=== PATIENT | female | born 1960 | race Caucasian/White ===

== ENCOUNTER 2025-03-16 15:25 | Inpatient (IN) | payer BC ==
[~2025-03-16] VITALS: Ht 165.1 cm; Wt 69.4 kg
[2025-03-16 15:27] VITALS: O2SAT 97
[2025-03-16] MEDS: MORPHINE SULFATE 4 MG/ML INJ (FOR IV/IM USE) IV STA (16:10)
[2025-03-16 17:05] LABS: BASOPHILS % 0.6 % (0.0-2.0); EOSINOPHILS % 8.3 % (0.0-5.0); HEMATOCRIT. 27.6 % (36.0-48.0); HEMOGLOBIN. 9.6 g/dL (12.0-16.0); LYMPHOCYTES % 25.1 % (20.0-50.0); MEAN CORPUSCULAR HEMOGLOBIN 29.6 pg (28.0-32.0); MEAN CORPUSCULAR HGB CONC 34.7 g/dL (31.0-37.0); MEAN CORPUSCULAR VOLUME 85.3 fL (81.0-99.0); MEAN PLATELET VOLUME 8.8 fl (7.4-10.4); MONOCYTES % 7.9 % (2.0-8.0); NEUTROPHILS % 58.1 % (40.0-76.0); PLATELET 302 x1000/uL (130-400); RED BLOOD CELL COUNT 3.24 mill/uL (4.2-5.4); RED CELL DISTRIBUTION WIDTH 15.8 % (11.6-14.6); WHITE BLOOD COUNT 8.7 x1000/uL (4.5-11.0)
[2025-03-16 17:10] LABS: CHLORIDE 105 mEq/L (98-107); POTASSIUM 4.8 mEq/L (3.5-5.1); SODIUM 137 mEq/L (136-145)
[2025-03-16 17:11] LABS: CARBON DIOXIDE 25 mEq/L (21-32)
[2025-03-16 17:12] LABS: CALCIUM 9.9 mg/dL (8.7-10.4)
[2025-03-16 17:14] LABS: PROTHROMBIN TIME 11.1 sec (9.6-11.0)
[2025-03-16 17:16] LABS: CREATININE 0.8 mg/dL (0.6-1.0); GLUCOSE 151 mg/dL (70-105)
[2025-03-16 17:17] LABS: TROPONIN I HIGH SENSITIVITY 21 ng/L (3.0-34); UREA NITROGEN BLOOD 18 mg/dL (9-23)
[2025-03-16 17:18] LABS: ALANINE AMINOTRANSFERASE 19 IU/L (10-49); ALBUMIN 3.5 g/dL (3.2-4.8); ASPARTATE AMINOTRANSFERASE 14 IU/L (<34)
[2025-03-16 17:19] LABS: BILIRUBIN DIRECT 0.2 mg/dL (<=3.0); BILIRUBIN TOTAL 0.5 mg/dL (0.1-1.0)
[2025-03-16] MEDS ORDERED: VANCOMYCIN 1000MG/250ML 250 ML IV STA (17:30)
[2025-03-16] MEDS: FUROSEMIDE 40MG/4ML VIAL IVP ONE (17:45)
[2025-03-16] MEDS ORDERED: VANCOMYCIN 1G PREMIX 200 ML IV SCH (18:00)
[2025-03-16] MEDS: PIPERACILLIN/TAZO 3.375G/50ML 50 ML IV STA (18:36)
[2025-03-16 19:38] LABS: TROPONIN I HIGH SENSITIVITY 11 ng/L (3.0-34)
[2025-03-16] MEDS ORDERED: HYDRALAZINE 20MG/ML VIAL IV PRN (20:00)
[2025-03-16] MEDS ORDERED: IPRATROPIUM/ALBUTEROL 0.5-3(2.5)MG/3ML NEB HHN PRN (20:00)
[2025-03-16] MEDS ORDERED: DOCUSATE SODIUM 100MG CAPSULE PO PRN (20:00)
[2025-03-16] MEDS ORDERED: GUAIFENESIN 200MG/10ML SUGAR FREE UDC PO PRN (20:00)
[2025-03-16] MEDS ORDERED: MAGNESIUM/ALUMINUM HYDROXIDE/SIMETHICONE 30ML UDC PO PRN (20:00)
[2025-03-16] MEDS ORDERED: DEXTROSE 50% WATER 50ML SYRINGE IV PRN (20:00)
[2025-03-16 21:00] VITALS: BP 145/68; PULSE 64; RESP 18; TEMP 36.6; O2SAT 99
[2025-03-16] MEDS: INSULIN LISPRO 100 UNITS/ML SUBCUT SCH (21:00)
[2025-03-16] MEDS: ENOXAPARIN 40MG/0.4ML SYR SUBCUT SCH (21:00)
[2025-03-16] MEDS: BLOOD SUGAR DIAGNOSTIC STRIP TEST SCH (21:55)
[2025-03-16 22:15] LABS: IRON 48 ug/dL (50-170)
[2025-03-16 22:17] LABS: TOTAL IRON BINDING CAPACITY 281 ug/dl (250-425)
[2025-03-16 22:21] LABS: FOLIC ACID (FOLATE) SERUM 14.95 ng/mL (>5.38); VITAMIN B12 SERUM 773 pg/mL (211-911)
[2025-03-16] MEDS ORDERED: LEVO50TA8 PO (23:07)
[2025-03-16] MEDS ORDERED: GABA-534 PO (23:07)
[2025-03-16] MEDS ORDERED: ARIP5TAB51 PO (23:07)
[2025-03-16] MEDS ORDERED: AMLO5TAB88 PO (23:07)
[2025-03-16] MEDS ORDERED: ATOR-2 PO (23:07)
[2025-03-16] MEDS ORDERED: CARV25TA47 PO (23:07)
[2025-03-17] VITALS (7 sets, daily range): BP systolic 103–145; BP diastolic 46–75; PULSE 69–78; RESP 17–20; TEMP 36.1–36.8; O2SAT 93–99
[2025-03-17] MEDS: LORAZEPAM 2MG/ML UD SYRINGE IV NR (00:10)
[2025-03-17] MEDS: NITROGLYCERIN 0.4MG TABLET SL SL PRN (04:42)
[2025-03-17] MEDS: HYDROCODONE/ACETAMINOPHEN 5/325MG TABLET PO PRN (06:30)
[2025-03-17 06:35] LABS: BASOPHILS % 0.9 % (0.0-2.0); EOSINOPHILS % 8.9 % (0.0-5.0); HEMATOCRIT. 29.8 % (36.0-48.0); HEMOGLOBIN. 10.2 g/dL (12.0-16.0); LYMPHOCYTES % 27.5 % (20.0-50.0); MEAN CORPUSCULAR HEMOGLOBIN 28.8 pg (28.0-32.0); MEAN CORPUSCULAR HGB CONC 34.1 g/dL (31.0-37.0); MEAN CORPUSCULAR VOLUME 84.5 fL (81.0-99.0); MEAN PLATELET VOLUME 9.3 fl (7.4-10.4); MONOCYTES % 7.6 % (2.0-8.0); NEUTROPHILS % 55.1 % (40.0-76.0); PLATELET 319 x1000/uL (130-400); RED BLOOD CELL COUNT 3.52 mill/uL (4.2-5.4); WHITE BLOOD COUNT 8.4 x1000/uL (4.5-11.0)
[2025-03-17 06:55] LABS: CHLORIDE 102 mEq/L (98-107); POTASSIUM 4.4 mEq/L (3.5-5.1); SODIUM 138 mEq/L (136-145)
[2025-03-17 06:59] LABS: CARBON DIOXIDE 27 mEq/L (21-32)
[2025-03-17 07:03] LABS: TROPONIN I HIGH SENSITIVITY 23 ng/L (3.0-34)
[2025-03-17 07:04] LABS: CREATININE 0.9 mg/dL (0.6-1.0); GLUCOSE 141 mg/dL (70-105)
[2025-03-17 07:05] LABS: TRIGLYCERIDE 135 mg/dL (0-150); UREA NITROGEN BLOOD 21 mg/dL (9-23)
[2025-03-17 07:06] LABS: LDL CHOLESTEROL 47 mg/dL (5-100)
[2025-03-17 07:07] LABS: CHOLESTEROL 93 mg/dL (<200); HDL CHOLESTEROL 25 mg/dL (>65); THYROID STIMULATING HORMONE 2.52 uIU/mL (0.55-4.78)
[2025-03-17] MEDS: GABAPENTIN 400MG CAPSULE PO SCH (09:00)
[2025-03-17] MEDS: ARIPIPRAZOLE 5MG TABLET PO SCH (10:49)
[2025-03-17] MEDS: ASPIRIN 81MG EC TABLET PO SCH (10:50)
[2025-03-17] MEDS: FUROSEMIDE 40MG/4ML VIAL IV SCH (10:50)
[2025-03-17] MEDS: LEVOTHYROXINE SODIUM 50MCG TABLET PO SCH (10:50)
[2025-03-17] MEDS: CARVEDILOL 12.5MG TABLET PO SCH (10:50)
[2025-03-17] MEDS: CLOPIDOGREL 75MG TABLET PO SCH (10:53)
[2025-03-17 13:53] LABS: CLARITY URINE TURBID (CLEAR); COLOR URINE YELLOW (YELLOW); GLUCOSE URINE NEGATIVE (NEGATIVE); KETONES URINE NEGATIVE (NEGATIVE); LEUKOCYTE ESTERASE URINE 3+ (NEGATIVE); NITRITE URINE POSITIVE (NEGATIVE); OCCULT BLOOD URINE 1+ (NEGATIVE); PROTEIN URINE 2+ (NEGATIVE); SPECIFIC GRAVITY URINE 1.016 (1.005-1.030); UROBILINOGEN URINE 0.2 E.U./dL (0.2-1.0)
[2025-03-17 14:12] LABS: SQUAMOUS EPITHELIAL CELL URINE FEW /lpf (RARE/1+)
[2025-03-17 14:13] LABS: BACTERIA URINE 1+; WBC URINE TNTC /hpf (0-2)
[2025-03-17 14:15] LABS: RBC URINE 0-2 /hpf (0-2)
[2025-03-17 14:28] LABS: *AMPHETAMINES SCREEN URINE NEGATIVE (NEGATIVE)
[2025-03-17 14:29] LABS: *BARBITURATES SCREEN URINE NEGATIVE (NEGATIVE); *BENZODIAZEPINES SCREEN URINE NEGATIVE (NEGATIVE); *COCAINE SCREEN URINE NEGATIVE (NEGATIVE); CANNABINOID URINE SCREEN NEGATIVE (NEGATIVE); ECSTASY MDMA SCREEN URINE NEGATIVE (NEGATIVE); METHADONE URINE SCREEN NEGATIVE (NEGATIVE); OPIATES URINE SCREEN PRESUMPTIVE POSITIVE (NEGATIVE); PHENCYCLIDINE URINE SCREEN NEGATIVE (NEGATIVE)
[2025-03-17] MEDS: ATORVASTATIN CALCIUM 40MG TABLET PO SCH (21:00)
[2025-03-17] MEDS: FAMOTIDINE 20MG TABLET PO SCH (21:00)
[2025-03-18] VITALS: BP 125/60; PULSE 70; RESP 20; TEMP 36.9; O2SAT 98
[2025-03-18] MEDS: ONDANSETRON HCL 4MG/2ML INJ IV PRN (03:34)
[2025-03-18 04:00] VITALS: BP 118/80; PULSE 79; RESP 20; TEMP 36.9; O2SAT 99
[2025-03-18 07:17] LABS: CHLORIDE 104 mEq/L (98-107); POTASSIUM 4.1 mEq/L (3.5-5.1); SODIUM 139 mEq/L (136-145)
[2025-03-18 07:19] LABS: CALCIUM 9.7 mg/dL (8.7-10.4); CARBON DIOXIDE 24 mEq/L (21-32)
[2025-03-18 07:23] LABS: CREATININE 0.8 mg/dL (0.6-1.0); GLUCOSE 118 mg/dL (70-105)
[2025-03-18 07:24] LABS: UREA NITROGEN BLOOD 16 mg/dL (9-23)
[2025-03-18 07:31] LABS: HEMATOCRIT 30.4 % (36.0-48.0); HEMOGLOBIN 10.4 g/dL (12.0-16.0); MEAN CORPUSCULAR HEMOGLOBIN 29.1 pg (28.0-32.0); MEAN CORPUSCULAR HGB CONC 34.1 g/dL (31.0-37.0); MEAN CORPUSCULAR VOLUME 85.2 fL (81.0-99.0); PLATELET 265 x1000/uL (130-400); RED BLOOD CELL COUNT 3.57 mill/uL (4.2-5.4); RED CELL DISTRIBUTION WIDTH 15.5 % (11.6-14.6); WHITE BLOOD COUNT 6.9 x1000/uL (4.5-11.0)
[2025-03-18 08:00] VITALS: BP 133/76; PULSE 82; RESP 18; TEMP 36.6; O2SAT 99
[2025-03-18] MEDS: FERROUS SULFATE 300MG/5ML UDC PO SCH (09:48)
[2025-03-18 12:00] VITALS: BP 115/61; PULSE 74; RESP 18; TEMP 36.5; O2SAT 98
[2025-03-18 16:00] VITALS: BP 121/69; PULSE 72; RESP 18; TEMP 36.2
[2025-03-18] MEDS: ACETAMINOPHEN 325MG TABLET PO PRN (17:38)
[2025-03-18 20:00] VITALS: BP 128/65; PULSE 74; RESP 18; TEMP 36; O2SAT 94
[2025-03-19] VITALS: BP 109/57; PULSE 71; RESP 21; TEMP 36.2; O2SAT 93
[2025-03-19 04:00] VITALS: BP 132/67; PULSE 71; RESP 20; TEMP 36; O2SAT 96
[2025-03-19 07:42] LABS: POTASSIUM 4.2 mEq/L (3.5-5.1)
[2025-03-19 07:43] LABS: CALCIUM 10.2 mg/dL (8.7-10.4); HEMATOCRIT 33.9 % (36.0-48.0); HEMOGLOBIN 11.1 g/dL (12.0-16.0); MEAN CORPUSCULAR HEMOGLOBIN 28.1 pg (28.0-32.0); MEAN CORPUSCULAR HGB CONC 32.9 g/dL (31.0-37.0); MEAN CORPUSCULAR VOLUME 85.4 fL (81.0-99.0); PLATELET 275 x1000/uL (130-400); RED BLOOD CELL COUNT 3.96 mill/uL (4.2-5.4); RED CELL DISTRIBUTION WIDTH 15.6 % (11.6-14.6); WHITE BLOOD COUNT 8.4 x1000/uL (4.5-11.0)
[2025-03-19 07:48] LABS: CREATININE 1.1 mg/dL (0.6-1.0)
[2025-03-19 08:00] VITALS: BP 120/65; PULSE 71; RESP 18; TEMP 36.9; O2SAT 99
[2025-03-19] MEDS ORDERED: CEFEPIME 1GM IN DEXT 5% 50ML IV SCH (08:45)
[2025-03-19] MEDS: SERTRALINE HCL 25MG TABLET PO SCH (08:52)
[2025-03-19] MEDS ORDERED: NALOXONE HCL 0.4MG/ML VIAL IV PRN (09:00)
[2025-03-19] MEDS: SODIUM CHLORIDE 0.45% 1,000 ML IV SCH (11:28)
[2025-03-19 12:00] VITALS: BP 131/69; PULSE 70; RESP 18; TEMP 36.4; O2SAT 96
[2025-03-19] MEDS: CEFEPIME 1GM PREMIX 50ML IV SCH (12:20)
[2025-03-19 16:00] VITALS: BP 129/58; PULSE 72; RESP 18; TEMP 36.7; O2SAT 98
[2025-03-19 20:00] VITALS: BP 136/77; PULSE 71; RESP 18; TEMP 36.3; O2SAT 94
[2025-03-20] VITALS: BP 149/75; PULSE 80; RESP 20; TEMP 36; O2SAT 93
[2025-03-20 04:00] VITALS: BP 129/62; PULSE 73; RESP 20; TEMP 36.4; O2SAT 98
[2025-03-20 08:00] VITALS: BP 126/55; PULSE 61; RESP 20; TEMP 36.5; O2SAT 93
[2025-03-20 08:03] LABS: HEMATOCRIT 29.9 % (36.0-48.0); HEMOGLOBIN 10.1 g/dL (12.0-16.0); MEAN CORPUSCULAR HEMOGLOBIN 28.3 pg (28.0-32.0); MEAN CORPUSCULAR HGB CONC 33.9 g/dL (31.0-37.0); MEAN CORPUSCULAR VOLUME 83.7 fL (81.0-99.0); PLATELET 232 x1000/uL (130-400); RED BLOOD CELL COUNT 3.57 mill/uL (4.2-5.4); RED CELL DISTRIBUTION WIDTH 15.3 % (11.6-14.6)
[2025-03-20 08:21] LABS: POTASSIUM 4.1 mEq/L (3.5-5.1)
[2025-03-20 08:23] LABS: CALCIUM 9.8 mg/dL (8.7-10.4)
[2025-03-20] MEDS: ACETAMINOPHEN 325MG TABLET PO PRN (11:49)
[2025-03-20 12:00] VITALS: BP 109/59; PULSE 76; RESP 18; TEMP 36.1; O2SAT 100
[2025-03-20] MEDS ORDERED: SERT25TA74 PO (15:19)
[2025-03-20] MEDS ORDERED: CLOP-31 PO (15:19)
[2025-03-20] MEDS ORDERED: COR12 PO (15:19)
[2025-03-20] MEDS ORDERED: ABIL5 PO (15:19)
[2025-03-20] MEDS ORDERED: LIP40 PO (15:19)
[2025-03-20] MEDS ORDERED: LEVO50TA8 PO (15:19)
[2025-03-20] MEDS ORDERED: ASPI-1406 PO (15:19)
[2025-03-20] MEDS ORDERED: CEFEPIME 2GM PREMIX 100ML IV SCH (15:30)
[2025-03-20] MEDS ORDERED: SODIUM CHLORIDE 0.45% 500 ML IV ONE (15:30)
== END 2025-03-20 17:40 | disposition home or self-care (01) | DRG 280 ==
LOC: ER 15:25 → 8WST 17:33 → EDBEDREQTM 17:48 → EDBEDREQ 17:48
PROVIDERS: ADMIT Internal Medicine; ATTEND Internal Medicine
DX: I21.9 Acute myocardial infarction, unspecified (principal); J18.9 Pneumonia, unspecified organism; N39.0 Urinary tract infection, site not specified; I11.0 Hypertensive heart disease with heart failure; I50.9 Heart failure, unspecified; I25.10 Atherosclerotic heart disease of native coronary artery without angina pectoris; E11.40 Type 2 diabetes mellitus with diabetic neuropathy, unspecified; E11.65 Type 2 diabetes mellitus with hyperglycemia; E03.9 Hypothyroidism, unspecified; D50.9 Iron deficiency anemia, unspecified; F29 Unspecified psychosis not due to a substance or known physiological condition; B96.1 Klebsiella pneumoniae [K. pneumoniae] as the cause of diseases classified elsewhere; F32.9 Major depressive disorder, single episode, unspecified; Z63.4 Disappearance and death of family member; Z79.899 Other long term (current) drug therapy; Z79.4 Long term (current) use of insulin; Z89.611 Acquired absence of right leg above knee; Z90.49 Acquired absence of other specified parts of digestive tract; Z95.1 Presence of aortocoronary bypass graft; Z95.2 Presence of prosthetic heart valve; Z95.5 Presence of coronary angioplasty implant and graft; Z99.3 Dependence on wheelchair; Z76.5 Malingerer [conscious simulation]
CPT/HCPCS: 36415; 71045; 80048; 80061; 80076; 80305; 81003; 82607; 82728; 82746; 82962; 83036; 83540; 83550; 83880; 84145; 84443; 84484; 85025; 85027; 85379; 86850; 86900; 87077; 87186; 93005; 93306; 93922; 93970; 97162; 97166; 97530; 99285; A4606; J0692; J1580; J1650; J1815; J1940; J2060; J2270; J2405; J2543; J3370; J7060